=== PATIENT | female | born 1985 | race Caucasian/White ===

== ENCOUNTER 2020-09-05 19:12 | Emergency (ER) | payer OTHER ==
[~2020-09-05] VITALS: Ht 170.2 cm; Wt 86.6 kg
[2020-09-05] MEDS ORDERED: MULTI VITAMIN1 EACH PO (19:27)
[2020-09-05] MEDS ORDERED: LEXAPRO20 MG PO (19:28)
[2020-09-05 19:44] LABS: ABSOLUTE BASOPHILS 0.1 thou/uL (0.0-0.2); ABSOLUTE EOSINOPHILS 0.2 thou/uL (0.0-0.7); ABSOLUTE LYMPHOCYTES 3.3 thou/uL (0.8-5.3); ABSOLUTE MONOCYTES 0.6 thou/uL (0.0-1.2); ABSOLUTE NEUTROPHILS 5.4 thou/uL (1.6-8.1); BASOPHILS 0.8 %; EOSINOPHILS 2.4 %; HEMATOCRIT 39.4 % (37.0-47.0); HEMOGLOBIN 13.6 gm/dL (12.0-15.0); LYMPHOCYTES 34.5 %; MCH 33.2 pg (26.0-34.0); MCHC 34.6 g/dL (28.0-37.0); MCV 95.9 fL (80.0-100.0); MONOCYTES 6.2 %; MPV 7.2 fl. (7.2-11.1); NUCLEATED RBCS 0 /100WBC; PLATELET COUNT* 307 thou/uL (150-400); POLYS 56.1 %; RBC 4.11 mil/uL (4.20-5.00); RDW-CV 12.3 % (10.5-14.5); WBC 9.6 thou/uL (4.0-11.0)
[2020-09-05 19:52] LABS: CALCIUM 8.6 mg/dL (8.5-10.1); CREATININE 0.6 mg/dL (0.6-1.3); POTASSIUM 3.8 mmol/L (3.5-5.1)
[2020-09-05 19:57] LABS: ALBUMIN 3.6 g/dL (3.4-5.0); TOTAL BILIRUBIN 0.1 mg/dL (<0.1-1.0); TOTAL PROTEIN 6.9 g/dL (6.4-8.2)
[2020-09-05] MEDS ORDERED: PRILOSEC OTC20 MG PO (22:36)
[2020-09-05 23:00] VITALS: BP 114/78
== END 2020-09-05 23:02 | disposition home or self-care (01) ==
LOC: M.ERS 19:12
PROVIDERS: Nurse Practitioner Psychiatric/Mental Health
DX: K59.00 Constipation, unspecified (principal); Z88.2 Allergy status to sulfonamides